=== PATIENT | female | born 1970 | race African-American/Black ===

== ENCOUNTER 2017-04-15 03:32 | Emergency (ER) | payer MEDICAID ==
[~2017-04-15] VITALS: Ht 167.6 cm; Wt 170.0 kg
[2017-04-15 03:42] VITALS: BP 185/115
[2017-04-15] MEDS ORDERED: VISCOUS LIDOCAINE 2% 15 ML UDC MM PRN (04:45)
== END 2017-04-15 05:54 | disposition home or self-care (01) ==
LOC: ER 03:32
DX: T16.2XXA Foreign body in left ear, initial encounter (principal); I10 Essential (primary) hypertension; J45.909 Unspecified asthma, uncomplicated; E66.01 Morbid (severe) obesity due to excess calories; X58.XXXA Exposure to other specified factors, initial encounter; Y93.89 Activity, other specified; Y92.89 Other specified places as the place of occurrence of the external cause; Y99.8 Other external cause status
CPT/HCPCS: 69200; 99284

== ENCOUNTER 2024-06-13 12:36 | Emergency (ER) | payer MEDICAID ==
[~2024-06-13] VITALS: Ht 172.7 cm; Wt 70.0 kg
[2024-06-13 12:40] VITALS: O2SAT 98
[2024-06-13] MEDS: ACETAMINOPHEN 325MG TABLET PO ONE (12:54)
[2024-06-13] MEDS ORDERED: GUAI237L83 MT (14:25)
[2024-06-13] MEDS ORDERED: IBUP-2029 MT (14:25)
[2024-06-13 15:32] VITALS: PULSE 84; RESP 16
[2024-06-13] MEDS: IPRATROPIUM/ALBUTEROL 0.5-3(2.5)MG/3ML NEB HHN ONE (15:32)
[2024-06-13 15:56] VITALS: BP 158/98; PULSE 88; RESP 18; TEMP 38.4; O2SAT 98
== END 2024-06-13 15:57 | disposition home or self-care (01) ==
LOC: ER 12:36
DX: J45.909 Unspecified asthma, uncomplicated (principal); B34.9 Viral infection, unspecified; J06.9 Acute upper respiratory infection, unspecified; I10 Essential (primary) hypertension; F10.90 Alcohol use, unspecified, uncomplicated; Y90.9 Presence of alcohol in blood, level not specified
CPT/HCPCS: 71045; 94640; 99283; Z7610 ×3